=== PATIENT | female | born 1940 | race Caucasian/White ===

== ENCOUNTER 2021-12-29 16:00 | Inpatient (IN) | payer MEDICARE, OTHER ==
[~2021-12-29] VITALS: Ht 160 cm; Wt 89.4 kg
[2021-12-29 16:30] VITALS: BP 171/81
[2021-12-29] MEDS ORDERED: ATOR80TA PO (16:40)
[2021-12-29] MEDS ORDERED: DABI150C PO (16:40)
[2021-12-29] MEDS ORDERED: AMIO200T5 PO (16:40)
[2021-12-29] MEDS ORDERED: ASPI-869 PO (16:40)
[2021-12-29] MEDS ORDERED: FURO20TA4 PO (16:42)
[2021-12-29] MEDS ORDERED: METO50TA16 PO (16:43)
[2021-12-29] MEDS ORDERED: PANT40TA49 PO (16:49)
[2021-12-29] MEDS ORDERED: HYDR-894 PO (16:51)
[2021-12-29] MEDS ORDERED: INSULIN REGULAR, HUMAN 300 UNIT/3 ML VIAL SQ PRN (17:00)
[2021-12-29] MEDS ORDERED: DEXTROSE 50% 50 ML DISP.SYRIN IV PRN (17:00)
--- NOTE | 2021-12-29 17:12 | NUR ---
Admitted patient in ARU unit under the care of BJ Osborne and Dr Patino, From [facility] patient Dx OF ACUTE CVA Pt is awake, alert oriented X 3 Danish Speaking no sob no chest pain, on room air sat 97% Pt has left side weakness, incontinent of bowel and bladder, patient able to make needs known at this time, cont to monitor.
[2021-12-29] MEDS ORDERED: REMEDY ESSENTIAL ZINC PASTE 113 GM TOP PRN (17:15)
--- NOTE | 2021-12-29 19:00 | NUR ---
Best Still NP made aware of of patient request for pain medication for mild generalized pain, Tylenol order noted and carried out.
[2021-12-29 20:17] VITALS: BP 147/61
[2021-12-29] MEDS: BLOOD SUGAR DIAGNOSTIC 1 EACH STRIP VI SCH (20:26)
[2021-12-30 03:54] VITALS: BP 144/58
[2021-12-30] MEDS: BLOOD SUGAR DIAGNOSTIC 1 EACH STRIP VI SCH ×4 (06:30→20:31)
[2021-12-30 07:55] VITALS: BP 150/74
[2021-12-30] MEDS ORDERED: DABIGATRAN ETEXILATE MESYLATE 150 MG CAPSULE PO ONE (09:00)
[2021-12-30] MEDS: FUROSEMIDE 20 MG TABLET PO SCH (10:19)
[2021-12-30] MEDS: ASPIRIN EC 325 MG TABLET.DR PO SCH (10:19)
[2021-12-30] MEDS: PANTOPRAZOLE SODIUM 40 MG TABLET.DR PO SCH (10:19)
[2021-12-30] MEDS: METOPROLOL TARTRATE 50 MG TABLET PO SCH ×2 (10:21→16:32)
[2021-12-30] MEDS: hydrALAZINE HCL 25 MG TABLET PO SCH ×3 (10:21→22:29)
[2021-12-30] MEDS: AMIODARONE HCL 200 MG TABLET PO SCH ×2 (10:22→20:28)
[2021-12-30 11:08] VITALS: BP 151/62
[2021-12-30] MEDS ORDERED: hydrALAZINE HCL 25 MG TABLET PO SCH (14:00)
[2021-12-30] MEDS: DABIGATRAN ETEXILATE MESYLATE 150 MG CAPSULE PO SCH (16:40)
[2021-12-30] MEDS ORDERED: PATIENT MAY USE OWN MED- MD OK PO SCH (17:00)
[2021-12-30] MEDS ORDERED: METOPROLOL TARTRATE 50 MG TABLET PO SCH (17:00)
--- NOTE | 2021-12-30 18:03 | NUR ---
Patient received care well throughout shift, with no complaints of pain or distress. Patient evaluated with PT/OT and suggest patient needs moderate assistance due to patient history and left sided weakness. Blood sugar controlled throughout shift with no need for insulin coverage. IV site patent and intact. Daughter at bed side most of shift. Filipino speaking only with drum tender required during patient care. Bed left in lowest position with call light within reach. Comfort measures provided. Will endorse information to PM nurse.
[2021-12-30] MEDS: ATORVASTATIN 40 MG TABLET PO SCH (20:28)
[2021-12-30 20:31] VITALS: BP 153/57
[2021-12-30] MEDS ORDERED: AMIODARONE HCL 200 MG TABLET PO SCH (21:00)
[2021-12-30] MEDS ORDERED: ATORVASTATIN 40 MG TABLET PO SCH (21:00)
[2021-12-31 03:56] VITALS: BP 158/49
[2021-12-31] MEDS: PANTOPRAZOLE SODIUM 40 MG TABLET.DR PO SCH (05:58)
[2021-12-31] MEDS: hydrALAZINE HCL 25 MG TABLET PO SCH ×3 (05:58→21:31)
[2021-12-31] MEDS: BLOOD SUGAR DIAGNOSTIC 1 EACH STRIP VI SCH ×4 (06:03→20:20)
[2021-12-31] MEDS ORDERED: PANTOPRAZOLE SODIUM 40 MG TABLET.DR PO SCH (07:30)
[2021-12-31 07:46] VITALS: BP 130/49
[2021-12-31] MEDS: ASPIRIN EC 325 MG TABLET.DR PO SCH (08:14)
[2021-12-31] MEDS: FUROSEMIDE 20 MG TABLET PO SCH (08:15)
[2021-12-31] MEDS: AMIODARONE HCL 200 MG TABLET PO SCH ×2 (08:15→20:11)
[2021-12-31] MEDS: METOPROLOL TARTRATE 50 MG TABLET PO SCH ×2 (08:15→16:17)
[2021-12-31] MEDS: DABIGATRAN ETEXILATE MESYLATE 150 MG CAPSULE PO SCH ×2 (08:16→16:16)
[2021-12-31] MEDS ORDERED: ASPIRIN EC 325 MG TABLET.DR PO SCH (09:00)
[2021-12-31] MEDS ORDERED: FUROSEMIDE 20 MG TABLET PO SCH (09:00)
[2021-12-31 15:11] VITALS: BP 146/45
--- NOTE | 2021-12-31 17:42 | NUR ---
Patient received care well throughout shift, with no complaints of pain or distress. Patient tolerating PT/OT but with no improvements due to left sided neglect. Blood glucose controlled during shift with no need for insulin coverage. Bed left in lowest position with call light within reach. Comfort measures provided. Will endorse information to PM nurse.
[2021-12-31 20:00] VITALS: BP 150/71
[2021-12-31] MEDS: ATORVASTATIN 40 MG TABLET PO SCH (20:10)
[2022-01-01 00:46] VITALS: BP 124/47
[2022-01-01 04:50] VITALS: BP 127/44
[2022-01-01] MEDS: PANTOPRAZOLE SODIUM 40 MG TABLET.DR PO SCH (06:26)
[2022-01-01] MEDS: hydrALAZINE HCL 25 MG TABLET PO SCH ×3 (06:26→21:08)
[2022-01-01 06:41] LABS: HEMATOCRIT 34.6 % (31.2-41.9); MEAN CORPUSCULAR HEMOGLOBIN 29.6 uug (24.7-32.8); MEAN CORPUSCULAR VOLUME 88.5 fL (75.5-95.3); PLATELET COUNT (AUTO) 281 K/uL (179-408)
[2022-01-01] MEDS: BLOOD SUGAR DIAGNOSTIC 1 EACH STRIP VI SCH ×4 (06:48→20:59)
[2022-01-01 07:10] LABS: POTASSIUM 2.9 mmol/L (3.5-5.1)
--- NOTE | 2022-01-01 08:07 | NUR ---
INDIVIDUALIZED PLAN OF CARE
[2022-01-01 08:12] VITALS: BP 153/57
[2022-01-01] MEDS ORDERED: POTASSIUM CHLORIDE 20 MEQ POWDER PACKET PO ONE ×2 (08:45→14:00)
[2022-01-01] MEDS: ASPIRIN EC 325 MG TABLET.DR PO SCH (09:07)
[2022-01-01] MEDS: DABIGATRAN ETEXILATE MESYLATE 150 MG CAPSULE PO SCH ×2 (09:08→17:36)
[2022-01-01] MEDS: FUROSEMIDE 20 MG TABLET PO SCH (09:08)
[2022-01-01] MEDS: AMIODARONE HCL 200 MG TABLET PO SCH ×2 (09:09→20:50)
[2022-01-01] MEDS: METOPROLOL TARTRATE 50 MG TABLET PO SCH ×2 (09:09→17:40)
[2022-01-01 15:14] VITALS: BP 131/51
[2022-01-01 20:43] VITALS: BP 143/50
[2022-01-01] MEDS: ATORVASTATIN 40 MG TABLET PO SCH (20:49)
[2022-01-02 04:28] VITALS: BP 166/57
[2022-01-02] MEDS: hydrALAZINE HCL 25 MG TABLET PO SCH ×3 (06:22→21:41)
[2022-01-02] MEDS: PANTOPRAZOLE SODIUM 40 MG TABLET.DR PO SCH (06:22)
[2022-01-02] MEDS: BLOOD SUGAR DIAGNOSTIC 1 EACH STRIP VI SCH ×4 (06:30→20:30)
[2022-01-02 08:52] VITALS: BP 160/60
[2022-01-02] MEDS: ASPIRIN EC 325 MG TABLET.DR PO SCH (10:27)
[2022-01-02] MEDS: AMIODARONE HCL 200 MG TABLET PO SCH ×2 (10:27→20:26)
[2022-01-02] MEDS: FUROSEMIDE 20 MG TABLET PO SCH (10:27)
[2022-01-02] MEDS: METOPROLOL TARTRATE 50 MG TABLET PO SCH ×2 (10:28→16:47)
[2022-01-02] MEDS: DABIGATRAN ETEXILATE MESYLATE 150 MG CAPSULE PO SCH ×2 (10:30→16:48)
[2022-01-02 16:45] VITALS: BP 144/57
[2022-01-02 20:16] VITALS: BP 149/52
[2022-01-02] MEDS: ATORVASTATIN 40 MG TABLET PO SCH (20:28)
[2022-01-03 04:31] VITALS: BP 152/48
[2022-01-03] MEDS: PANTOPRAZOLE SODIUM 40 MG TABLET.DR PO SCH (05:45)
[2022-01-03] MEDS: hydrALAZINE HCL 25 MG TABLET PO SCH ×3 (05:45→21:43)
[2022-01-03] MEDS: BLOOD SUGAR DIAGNOSTIC 1 EACH STRIP VI SCH ×4 (05:51→21:02)
[2022-01-03 07:43] VITALS: BP 149/57
[2022-01-03] MEDS: AMIODARONE HCL 200 MG TABLET PO SCH ×2 (08:37→20:52)
[2022-01-03] MEDS: FUROSEMIDE 20 MG TABLET PO SCH (08:37)
[2022-01-03] MEDS: DABIGATRAN ETEXILATE MESYLATE 150 MG CAPSULE PO SCH ×2 (08:39→16:57)
[2022-01-03] MEDS: ASPIRIN EC 325 MG TABLET.DR PO SCH (08:40)
[2022-01-03] MEDS: METOPROLOL TARTRATE 50 MG TABLET PO SCH ×2 (08:40→16:53)
[2022-01-03 15:29] VITALS: BP 119/54
[2022-01-03 20:27] VITALS: BP 140/70
[2022-01-03] MEDS: ATORVASTATIN 40 MG TABLET PO SCH (20:51)
[2022-01-04 04:38] VITALS: BP 135/59
[2022-01-04] MEDS: hydrALAZINE HCL 25 MG TABLET PO SCH ×3 (05:51→22:23)
[2022-01-04] MEDS: PANTOPRAZOLE SODIUM 40 MG TABLET.DR PO SCH (06:15)
[2022-01-04] MEDS: BLOOD SUGAR DIAGNOSTIC 1 EACH STRIP VI SCH ×2 (06:15→11:17)
[2022-01-04 07:16] LABS: CARBON DIOXIDE 31 mmol/L (21-32); CHLORIDE 98 mmol/L (98-107); CREATININE 1.4 mg/dL (0.6-1.3); GLUCOSE 99 mg/dL (74-106); POTASSIUM 3.4 mmol/L (3.5-5.1); UREA NITROGEN, BLOOD 22 mg/dL (7-18)
[2022-01-04 07:51] VITALS: BP 152/68
[2022-01-04] MEDS: FUROSEMIDE 20 MG TABLET PO SCH (08:00)
[2022-01-04] MEDS: AMIODARONE HCL 200 MG TABLET PO SCH ×2 (08:00→20:13)
[2022-01-04] MEDS: ASPIRIN EC 325 MG TABLET.DR PO SCH (08:00)
[2022-01-04] MEDS: DABIGATRAN ETEXILATE MESYLATE 150 MG CAPSULE PO SCH ×2 (08:01→17:15)
[2022-01-04] MEDS: METOPROLOL TARTRATE 50 MG TABLET PO SCH ×2 (08:01→16:31)
[2022-01-04] MEDS ORDERED: POTASSIUM CHLORIDE 20 MEQ TAB.PRT.SR PO ONE (14:00)
[2022-01-04 16:11] VITALS: BP 107/50
[2022-01-04 20:00] VITALS: BP 130/45
[2022-01-04] MEDS: ATORVASTATIN 40 MG TABLET PO SCH (20:14)
[2022-01-05 04:00] VITALS: BP 127/55
[2022-01-05] MEDS: PANTOPRAZOLE SODIUM 40 MG TABLET.DR PO SCH (06:34)
[2022-01-05] MEDS: hydrALAZINE HCL 25 MG TABLET PO SCH ×2 (06:34→14:34)
[2022-01-05 06:55] LABS: HEMATOCRIT 35.8 % (31.2-41.9); MEAN CORPUSCULAR HEMOGLOBIN 29.7 uug (24.7-32.8); MEAN CORPUSCULAR VOLUME 88.5 fL (75.5-95.3); PLATELET COUNT (AUTO) 307 K/uL (179-408)
[2022-01-05 07:06] LABS: CARBON DIOXIDE 31 mmol/L (21-32); CHLORIDE 99 mmol/L (98-107); CREATININE 1.5 mg/dL (0.6-1.3); GLUCOSE 92 mg/dL (74-106); MAGNESIUM 2.2 mg/dL (1.8-2.4); PHOSPHOROUS 4.2 mg/dL (2.5-4.9); POTASSIUM 3.7 mmol/L (3.5-5.1); UREA NITROGEN, BLOOD 24 mg/dL (7-18)
[2022-01-05 08:51] VITALS: BP 137/61
[2022-01-05] MEDS: AMIODARONE HCL 200 MG TABLET PO SCH ×2 (10:06→20:36)
[2022-01-05] MEDS: ASPIRIN EC 325 MG TABLET.DR PO SCH (10:06)
[2022-01-05] MEDS: METOPROLOL TARTRATE 50 MG TABLET PO SCH ×2 (10:07→17:05)
[2022-01-05] MEDS: DABIGATRAN ETEXILATE MESYLATE 75 MG CAPSULE PO SCH ×2 (10:10→17:02)
--- NOTE | 2022-01-05 13:19 | NUR ---
INTERDISCIPLINARY TEAM CONFERENCE
[2022-01-05] MEDS: IV NS 1000 ML 1,000 ML IV PRN (16:29)
--- NOTE | 2022-01-05 19:00 | NUR ---
Received patient on bed, awake, Malaysian speaking, bale to state her needs in Malaysian, not in respiratory distress, With ongoing IVF NS at 60cc/hr. She accidentally pulled out the IV access at right forearm, inserted new IV access at right wrist G-22. Safety precautions provided, call ligt placed within reach.
[2022-01-05 20:00] VITALS: BP 133/106
[2022-01-05] MEDS: ATORVASTATIN 40 MG TABLET PO SCH (20:39)
[2022-01-05 23:45] VITALS: BP 130/75
[2022-01-06] MEDS: hydrALAZINE HCL 25 MG TABLET PO SCH ×4 (00:32→22:30)
[2022-01-06] MEDS: ACETAMINOPHEN 325 MG TABLET PO PRN (02:52)
[2022-01-06 04:42] VITALS: BP 129/65
--- NOTE | 2022-01-06 05:35 | NUR ---
Slept intermittently, no shortness of breath, with episodes of confusion. No significant event within the shift.
[2022-01-06] MEDS: PANTOPRAZOLE SODIUM 40 MG TABLET.DR PO SCH (06:16)
[2022-01-06 06:28] LABS: HEMATOCRIT 34.5 % (31.2-41.9); MEAN CORPUSCULAR HEMOGLOBIN 29.3 uug (24.7-32.8); MEAN CORPUSCULAR VOLUME 88.1 fL (75.5-95.3); PLATELET COUNT (AUTO) 314 K/uL (179-408)
[2022-01-06 06:48] LABS: CREATININE 1.3 mg/dL (0.6-1.3); PHOSPHOROUS 3.6 mg/dL (2.5-4.9); POTASSIUM 3.4 mmol/L (3.5-5.1)
[2022-01-06 08:01] VITALS: BP 139/45
[2022-01-06] MEDS: METOPROLOL TARTRATE 50 MG TABLET PO SCH ×2 (09:32→17:32)
[2022-01-06] MEDS: ASPIRIN EC 325 MG TABLET.DR PO SCH (09:32)
[2022-01-06] MEDS: DABIGATRAN ETEXILATE MESYLATE 75 MG CAPSULE PO SCH ×2 (09:38→17:32)
[2022-01-06] MEDS ORDERED: POTASSIUM CHLORIDE 20 MEQ TAB.PRT.SR PO ONE (09:45)
[2022-01-06] MEDS: AMIODARONE HCL 200 MG TABLET PO SCH ×2 (09:46→20:18)
[2022-01-06 16:12] VITALS: BP 131/53
--- NOTE | 2022-01-06 19:00 | NUR ---
Received patient on bed, awake, Moroccan speaking, bale to state her needs in Moroccan, not in respiratory distress, With ongoing IVF NS at 60cc/hr. With IV access at right forearm G-22. Safety precautions provided, call light placed within reach.
[2022-01-06 20:00] VITALS: BP 158/68
[2022-01-06] MEDS: ATORVASTATIN 40 MG TABLET PO SCH (20:19)
[2022-01-06 22:34] VITALS: BP 150/70
[2022-01-07 04:39] VITALS: BP 136/74
--- NOTE | 2022-01-07 06:01 | NUR ---
Slept intermittently, no shortness of breath, with episodes of confusion. No significant event within the shift.
[2022-01-07] MEDS: PANTOPRAZOLE SODIUM 40 MG TABLET.DR PO SCH (06:38)
[2022-01-07] MEDS: hydrALAZINE HCL 25 MG TABLET PO SCH ×3 (06:39→21:59)
[2022-01-07 08:14] VITALS: BP 124/64
[2022-01-07] MEDS: ASPIRIN EC 325 MG TABLET.DR PO SCH (09:09)
[2022-01-07] MEDS: AMIODARONE HCL 200 MG TABLET PO SCH ×2 (09:10→20:16)
[2022-01-07] MEDS: DABIGATRAN ETEXILATE MESYLATE 75 MG CAPSULE PO SCH ×2 (09:10→17:22)
[2022-01-07] MEDS: METOPROLOL TARTRATE 50 MG TABLET PO SCH ×2 (09:10→17:23)
[2022-01-07] MEDS: IV NS 1000 ML 1,000 ML IV PRN (14:13)
[2022-01-07] MEDS: ENSURE ENLIVE (VAN) 240 ML LIQUID PO SCH ×2 (15:24→17:23)
[2022-01-07 17:03] VITALS: BP 144/60
--- NOTE | 2022-01-07 19:15 | NUR ---
Received patient on bed, awake, Austrian speaking, bale to state her needs in Austrian, not in respiratory distress, With ongoing IVF NS at 60cc/hr. She accidentally pulled out the IV access at right forearm, inserted new IV access at right wrist G-22. Safety precautions provided, call light placed within reach.
[2022-01-07 20:00] VITALS: BP 133/49
[2022-01-07] MEDS: ATORVASTATIN 40 MG TABLET PO SCH (20:16)
[2022-01-08] MEDS: hydrALAZINE HCL 25 MG TABLET PO SCH ×3 (03:33→21:20)
--- NOTE | 2022-01-08 03:37 | NUR ---
BP 170/55, Hydralazine 25mg PO given earlier as scheduled.
[2022-01-08 04:00] VITALS: BP 170/60
--- NOTE | 2022-01-08 05:12 | NUR ---
Slept well, no shortness of breath, with episodes of confusion, cooperative. Hydralazine 25mg PO given earlier due to BP 170/50. Asymptomatic. For continuity of care.
[2022-01-08] MEDS: PANTOPRAZOLE SODIUM 40 MG TABLET.DR PO SCH (07:01)
[2022-01-08 07:30] VITALS: BP 159/69
[2022-01-08] MEDS: ASPIRIN EC 325 MG TABLET.DR PO SCH (08:12)
[2022-01-08] MEDS: DABIGATRAN ETEXILATE MESYLATE 75 MG CAPSULE PO SCH ×2 (08:22→18:02)
[2022-01-08] MEDS: ENSURE ENLIVE (VAN) 240 ML LIQUID PO SCH ×3 (08:26→18:03)
[2022-01-08] MEDS: METOPROLOL TARTRATE 50 MG TABLET PO SCH ×2 (09:00→17:56)
[2022-01-08] MEDS: AMIODARONE HCL 200 MG TABLET PO SCH ×2 (09:41→21:13)
[2022-01-08] MEDS ORDERED: hydrALAZINE HCL 10 MG TABLET PO PRN (09:45)
[2022-01-08] MEDS: IV NS 1000 ML 1,000 ML IV PRN (12:31)
[2022-01-08 16:18] VITALS: BP 150/57
[2022-01-08 20:00] VITALS: BP 154/41
[2022-01-08] MEDS: ATORVASTATIN 40 MG TABLET PO SCH (21:13)
--- NOTE | 2022-01-08 22:00 | NUR ---
Reinserted IV on left forearm 22g. Intact and patent. Running NS at 60 cc/hr.
[2022-01-09] MEDS: hydrALAZINE HCL 25 MG TABLET PO SCH ×3 (05:31→22:00)
[2022-01-09 05:36] VITALS: BP 170/58
[2022-01-09] MEDS: PANTOPRAZOLE SODIUM 40 MG TABLET.DR PO SCH (06:40)
[2022-01-09 07:24] LABS: HEMATOCRIT 35.8 % (31.2-41.9); MEAN CORPUSCULAR HEMOGLOBIN 29.2 uug (24.7-32.8); MEAN CORPUSCULAR VOLUME 88.6 fL (75.5-95.3); PLATELET COUNT (AUTO) 296 K/uL (179-408)
[2022-01-09 07:37] VITALS: BP 168/65
[2022-01-09 07:37] LABS: MAGNESIUM 1.8 mg/dL (1.8-2.4); PHOSPHOROUS 2.8 mg/dL (2.5-4.9); POTASSIUM 3.7 mmol/L (3.5-5.1)
[2022-01-09] MEDS: AMIODARONE HCL 200 MG TABLET PO SCH ×2 (09:31→21:06)
[2022-01-09] MEDS: ASPIRIN EC 325 MG TABLET.DR PO SCH (09:31)
[2022-01-09] MEDS: ENSURE ENLIVE (VAN) 240 ML LIQUID PO SCH ×3 (09:33→17:27)
[2022-01-09] MEDS: METOPROLOL TARTRATE 50 MG TABLET PO SCH ×2 (09:38→17:27)
[2022-01-09] MEDS: DABIGATRAN ETEXILATE MESYLATE 75 MG CAPSULE PO SCH ×2 (09:41→17:26)
[2022-01-09 17:02] VITALS: BP 105/56
--- NOTE | 2022-01-09 19:30 | NUR ---
Received pt in no acute distress. Pt confused.Pt several times trying to get out of the bed and pulled out her iv.Notify Dr regional forester. Waiting for reply. Safety and comfort provided. Will continue to monitor.
[2022-01-09 20:00] VITALS: BP 106/61
--- NOTE | 2022-01-09 20:32 | NUR ---
Dr. Chirinos ordered bilateral wrist restraint on pt for safety. Will continue to monitor.
[2022-01-09] MEDS: ACETAMINOPHEN 325 MG TABLET PO PRN (21:06)
[2022-01-09] MEDS: ATORVASTATIN 40 MG TABLET PO SCH (21:06)
--- NOTE | 2022-01-09 22:00 | NUR ---
Apresoline 2200H nonadministered as per pt blood pressure decreased.
[2022-01-10 04:00] VITALS: BP 165/52
--- NOTE | 2022-01-10 05:34 | NUR ---
Pt slept intermittently. Prescribed medication given and pt tolerated it well. Pt restless and trying to get out of the bed. Pt screaming. Needs reorientation. Vital signs stable. All needs are met. Will endorse to incoming nurse for continuity of care.
[2022-01-10] MEDS: hydrALAZINE HCL 25 MG TABLET PO SCH ×3 (05:50→21:29)
[2022-01-10] MEDS: PANTOPRAZOLE SODIUM 40 MG TABLET.DR PO SCH (06:01)
[2022-01-10 06:48] VITALS: BP 140/65
[2022-01-10 07:30] VITALS: BP 119/62
[2022-01-10] MEDS: METOPROLOL TARTRATE 50 MG TABLET PO SCH ×2 (09:00→17:55)
[2022-01-10] MEDS: DABIGATRAN ETEXILATE MESYLATE 75 MG CAPSULE PO SCH ×2 (09:25→17:57)
[2022-01-10] MEDS: AMIODARONE HCL 200 MG TABLET PO SCH ×2 (09:26→20:24)
[2022-01-10] MEDS: ASPIRIN EC 325 MG TABLET.DR PO SCH (09:27)
[2022-01-10] MEDS: ENSURE ENLIVE (VAN) 240 ML LIQUID PO SCH ×3 (10:10→17:59)
[2022-01-10 15:59] VITALS: BP 150/60
[2022-01-10 20:00] VITALS: BP 141/73
[2022-01-10] MEDS: ATORVASTATIN 40 MG TABLET PO SCH (20:25)
[2022-01-11] MEDS: hydrALAZINE HCL 25 MG TABLET PO SCH ×3 (06:03→21:57)
[2022-01-11] MEDS: PANTOPRAZOLE SODIUM 40 MG TABLET.DR PO SCH (06:03)
[2022-01-11 07:03] VITALS: BP 150/63
[2022-01-11 07:45] VITALS: BP 155/68
[2022-01-11] MEDS: ASPIRIN EC 325 MG TABLET.DR PO SCH (08:38)
[2022-01-11] MEDS: METOPROLOL TARTRATE 50 MG TABLET PO SCH ×2 (08:39→17:13)
[2022-01-11] MEDS: DABIGATRAN ETEXILATE MESYLATE 75 MG CAPSULE PO SCH ×2 (08:39→17:12)
[2022-01-11] MEDS: AMIODARONE HCL 200 MG TABLET PO SCH ×2 (08:40→20:32)
[2022-01-11] MEDS: ENSURE ENLIVE (VAN) 240 ML LIQUID PO SCH ×3 (08:40→17:10)
[2022-01-11 12:00] VITALS: BP 137/55
[2022-01-11 15:55] VITALS: BP 123/54
[2022-01-11 20:00] VITALS: BP 115/64
--- NOTE | 2022-01-11 20:32 | NUR ---
Amiodarone Hcl not given HR 55 bpm.
[2022-01-11] MEDS: ATORVASTATIN 40 MG TABLET PO SCH (20:33)
[2022-01-12 04:00] VITALS: BP 154/64
[2022-01-12] MEDS: PANTOPRAZOLE SODIUM 40 MG TABLET.DR PO SCH (05:26)
[2022-01-12] MEDS: hydrALAZINE HCL 25 MG TABLET PO SCH ×2 (05:26→14:27)
--- NOTE | 2022-01-12 06:07 | NUR ---
Slept well. No significant event reported all night. Continue current Rehab plan of care.
[2022-01-12 08:05] VITALS: BP 159/56
[2022-01-12] MEDS: AMIODARONE HCL 200 MG TABLET PO SCH (08:22)
[2022-01-12] MEDS: ENSURE ENLIVE (VAN) 240 ML LIQUID PO SCH ×2 (08:22→13:00)
[2022-01-12] MEDS: ASPIRIN EC 325 MG TABLET.DR PO SCH (08:22)
[2022-01-12] MEDS: METOPROLOL TARTRATE 50 MG TABLET PO SCH (08:22)
[2022-01-12] MEDS: DABIGATRAN ETEXILATE MESYLATE 75 MG CAPSULE PO SCH (08:23)
[2022-01-12 11:39] VITALS: BP 158/62
--- NOTE | 2022-01-12 13:00 | NUR ---
Seen by social work nurse and provided [place] application for Access transportation.
[2022-01-12 14:27] VITALS: BP 155/60
--- NOTE | 2022-01-12 15:58 | NUR ---
Patient is AAO x4. She is passive with conversation and teaching. Patient favors her right side due to left sides weakness s/p CVA. Daughter is at bedside. Patient request that discharge instructions be given to her daughter and requests that she sign discharge paperwork. Daughter is able to verbalize understanding of instructions and medications. Patient discharged at this time, transportation provided by [facility] ambulance, destination is home. All belongings taken by daughter.
== END 2022-01-12 16:00 | disposition home health service (06) | DRG 56 ==
PROVIDERS: ADMIT Physical Medicine & Rehabilitation Pain Medicine; ATTEND Physical Medicine & Rehabilitation Pain Medicine
DX: I69.398 Other sequelae of cerebral infarction (principal); G93.41 Metabolic encephalopathy; N17.0 Acute kidney failure with tubular necrosis; R41.4 Neurologic neglect syndrome; E78.5 Hyperlipidemia, unspecified; G93.89 Other specified disorders of brain; I10 Essential (primary) hypertension; I48.0 Paroxysmal atrial fibrillation; R13.10 Dysphagia, unspecified; I69.320 Aphasia following cerebral infarction; E66.9 Obesity, unspecified; M19.90 Unspecified osteoarthritis, unspecified site; E87.6 Hypokalemia; I25.10 Atherosclerotic heart disease of native coronary artery without angina pectoris; Z68.34 Body mass index [BMI] 34.0-34.9, adult; Z96.653 Presence of artificial knee joint, bilateral
CPT/HCPCS: 36415; 83735; 84100; 85025; 97161; 97535-GO-CO; A4663; C1758; J1815; J7040